=== PATIENT | male | born 1935 | race Two or more races ===

== ENCOUNTER → 2016-08-23 | Outpatient (CLI) | payer MEDICARE ==
[2016-08-21 15:02] VITALS: BP 90/59
[~2016-08-23] MED LIST: ASPI-482 PO; BARIUM SULFATE 340 GM SUSPENSION. PO ONE; BARIUM SULFATE 96% 397 GM ENEMA. PR ONE; CHOL2000 PO; CYAN10005 PO; LEVO100T5 PO; PANT40TA3 PO; SIMETHICONE/SOD BICARB/CITRIC ACID PACKET. PO ONE; SIMV80TA3 PO
--- NOTE | 2016-08-23 10:31 | RAD ---
EXAM: Double contrast barium esophagram. HISTORY: Gastrointestinal hemorrhage. COMPARISON: None. FINDINGS: Barium contrast material was administered orally and followed in its course through the pharynx, esophagus and gastroesophageal junction with fluoroscopy. Images of the stomach were also obtained. 22 fluoroscopic images were obtained. Fluoroscopy time 4.0 minutes. The swallowing apparatus appeared to function normally. There are surgical clips bilaterally in the neck. The esophageal also reported on recent endoscopy is not clearly demonstrated on this study. Esophageal morphology appears normal. There is moderate dysmotility within the mid and distal thirds of the esophagus on some swallows. The gastroesophageal junction is in expected position. Gastroesophageal reflux was spontaneous while supine. Images of the stomach revealed no clear mucosal lesions. The proximal duodenum appears normal. There is a duodenal diverticulum along the 4th portion. IMPRESSION: 1. Gastroesophageal reflux while supine. 2. The mucosal lesions reported on prior endoscopy are not appreciated by this technique. Refer to prior endoscopy for additional detail. 3. Moderate mid and distal esophageal dysmotility. 4. 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
== END | disposition home or self-care (01) ==
LOC: RAD 08:06
PROVIDERS: ATTEND Internal Medicine Gastroenterology
DX: K92.2 Gastrointestinal hemorrhage, unspecified (principal); K21.9 Gastro-esophageal reflux disease without esophagitis
CPT/HCPCS: 74220

== ENCOUNTER 2016-08-24 19:20 | Emergency (ER) | payer MEDICARE ==
[~2016-08-24] VITALS: Ht 180.3 cm; Wt 71.2 kg
[~2016-08-24 19:20] MED LIST changes: -BARIUM SULFATE 340 GM SUSPENSION. PO ONE; -BARIUM SULFATE 96% 397 GM ENEMA. PR ONE; -SIMETHICONE/SOD BICARB/CITRIC ACID PACKET. PO ONE
--- NOTE | 2016-08-24 19:59 | PHYS DOC ---
Past Medical History Past Medical History: Anemia, CVA, GERD, P.U.D. Past Surgical History: Other Additional Past Surgical Histo: carotid endar. cataracts Alcohol Use: None Drug Use: None Adult General Chief Complaint Chief Complaint: LOWER EXTREMITY SWELLING HPI HPI Patient is a 81 year old male presenting to the emergency department for evaluation of left lower extremity swelling that started several days ago. Leg is diffusely swollen but he denies any pain is entire leg and he is able to emulate with no difficulty. Patient was discharged 3 days ago after being admitted for a GI bleed and received an upper scope and a colonoscopy. Patient denies any other complaints including chest pain or SOA. Review of Systems Review of Systems Constitutional: Denies fever or chills [] Respiratory: Denies cough or shortness of breath [] Cardiovascular: No additional information not addressed in HPI [] GI: Denies abdominal pain, nausea, vomiting, bloody stools or diarrhea [] : Denies dysuria or hematuria [] Musculoskeletal: Denies back pain or joint pain [] Integument: Denies rash or skin lesions [] Neurologic: Denies headache, focal weakness or sensory changes [] Allergies Allergies Allergies Coded Allergies Type Severity Reaction Last Updated Verified No Known Drug Allergies 08/19/16 No Physical Exam Physical Exam Constitutional: Well developed, well nourished, no acute distress, non-toxic appearance. [] Cardiovascular:Heart rate regular rhythm, no murmur [] Lungs & Thorax: Bilateral breath sounds clear to auscultation [] Abdomen: Bowel sounds normal, soft, no tenderness, no masses, no pulsatile masses. [] Skin: Warm, dry, no erythema, no rash. [] Back: No tenderness, no CVA tenderness. [] Extremities: No tenderness, no cyanosis, no clubbing, ROM intact,+ LLE 1-2 + edema. [] Neurologic: Alert and oriented X 3, normal motor function, normal sensory function, no focal deficits noted. [] Current Patient Data Vital Signs Vital Signs Date Time Temp Pulse Resp B/P (MAP) Pulse Ox O2 Delivery O2 Flow Rate FiO2 08/24/16 20:28 67 18 130/70 (90) 97 Room Air 08/24/16 19:42 97.9 97.9 Lab Values Laboratory Tests Test 08/24/16 20:15 White Blood Count 6.0 x10^3/uL (4.0-11.0) Red Blood Count 3.00 x10^6/uL (4.30-5.70) L Hemoglobin 9.6 g/dL (13.0-17.5) L Hematocrit 27.4 % (39.0-53.0) L Mean Corpuscular Volume 91 fL (79-100) Mean Corpuscular Hemoglobin 32 pg (25-35) Mean Corpuscular Hemoglobin Concent 35 g/dL (31-37) Red Cell Distribution Width 15.9 % (11.5-14.5) H Platelet Count 239 x10^3/uL (140-400) Neutrophils (%) (Auto) 66 % (31-73) Lymphocytes (%) (Auto) 21 % (24-48) L Monocytes (%) (Auto) 9 % (0-9) Eosinophils (%) (Auto) 3 % (0-3) Basophils (%) (Auto) 1 % (0-3) Neutrophils # (Auto) 4.0 x10^3uL (1.8-7.7) Lymphocytes # (Auto) 1.3 x10^3/uL (1.0-4.8) Monocytes # (Auto) 0.5 x10^3/uL (0.0-1.1) Eosinophils # (Auto) 0.2 x10^3/uL (0.0-0.7) Basophils # (Auto) 0.1 x10^3/uL (0.0-0.2) Prothrombin Time 12.4 SEC (11.7-14.0) Prothrombin Time INR 1.0 (0.8-1.1) PTT 29 SEC (24-38) Sodium Level 143 mmol/L (136-145) Potassium Level 3.6 mmol/L (3.5-5.1) Chloride Level 109 mmol/L (98-107) H Carbon Dioxide Level 28 mmol/L (21-32) Anion Gap 6 (6-14) Blood Urea Nitrogen 15 mg/dL (8-26) Creatinine 0.9 mg/dL (0.7-1.3) Estimated GFR (Cockcroft-Gault) 81.4 BUN/Creatinine Ratio 17 (6-20) Glucose Level 127 mg/dL (70-99) H Calcium Level 7.9 mg/dL (8.5-10.1) L Magnesium Level 2.0 mg/dL (1.8-2.4) Total Bilirubin 0.3 mg/dL (0.2-1.0) Aspartate Amino Transferase (AST) 16 U/L (15-37) Alanine Aminotransferase (ALT) 22 U/L (16-63) Alkaline Phosphatase 74 U/L (46-116) [id number]-Type Natriuretic Peptide 144 pg/mL (0-449) Total Protein 5.6 g/dL (6.4-8.2) L Albumin 2.8 g/dL (3.4-5.0) L Albumin/Globulin Ratio 1.0 (1.0-1.7) Laboratory Tests 08/24/16 20:15 Laboratory Tests 08/24/16 20:15 EKG EKG [] Radiology/Procedures Radiology/Procedures Left Lower Extremity Venous Doppler Ultrasound Indication: Left lower extremity swelling for 2 days. Comparison: None. Procedure: Color Doppler, spectral Doppler, and grayscale images with and without compression are obtained in the area of the common femoral vein, superficial femoral vein - femoral vein junction, main femoral vein (superficial femoral vein) and popliteal vein. Veins of the proximal calf are also imaged. Findings: There is normal duplex flow, color flow and compressibility of all visualized vein segments. There is no evidence of deep venous thrombosis. 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 Impression: No evidence of left lower extremity deep venous thrombosis. Electronically signed by: Edvin Valdivia MD (08/24/2016 9:05 PM) DICTATED and SIGNED BY: EDVIN VALDIVIA MD DATE: 08/24/162103 Course & Med Decision Making Course & Med Decision Making Will get screening labs ultrasound and reassess. Ultrasound negative and he has repeat benign exam so he'll be discharged with instructions to keep his left leg elevated follow with his primary care provider later this week and come back to the ER sooner with any worsening pain weakness swelling or other general concerns. Dragon Disclaimer Dragon Disclaimer This electronic medical record was generated, in whole or in part, using a voice recognition dictation system. Departure Departure Impression: Primary Impression: Leg edema, left Disposition: 01 HOME, SELF-CARE Condition: GOOD Referrals: UNKNOWN PCP NAME (PCP) Patient Instructions: Peripheral Edema MC RUBI DO Aug 24, 2016 19:59
[2016-08-24 20:24] LABS: BASO # 0.1 x10^3/uL (0.0-0.2); BASO % 1 % (0-3); EOS % 3 % (0-3); HEMATOCRIT 27.4 % (39.0-53.0); HEMOGLOBIN 9.6 g/dL (13.0-17.5); LYMPH # 1.3 x10^3/uL (1.0-4.8); LYMPH % 21 % (24-48); MEAN CORPUSCULAR HEMOGLOBIN 32 pg (25-35); MEAN CORPUSCULAR HGB CONC 35 g/dL (31-37); MEAN CORPUSCULAR VOLUME 91 fL (79-100); MONO % 9 % (0-9); NEUT % 66 % (31-73); PLATELET COUNT 239 x10^3/uL (140-400); RED CELL DISTRIBUTION WIDTH 15.9 % (11.5-14.5)
[2016-08-24 20:28] VITALS: BP 130/70
[2016-08-24 20:33] LABS: PROTHROMBIN TIME PATIENT 12.4 SEC (11.7-14.0)
[2016-08-24 20:42] LABS: CALCIUM 7.9 mg/dL (8.5-10.1); CREATININE 0.9 mg/dL (0.7-1.3); GFR 81.4; POTASSIUM 3.6 mmol/L (3.5-5.1)
[2016-08-24 20:45] LABS: ALBUMIN 2.8 g/dL (3.4-5.0); TOTAL BILIRUBIN 0.3 mg/dL (0.2-1.0); TOTAL PROTEIN 5.6 g/dL (6.4-8.2)
--- NOTE | 2016-08-24 21:09 | RAD ---
Left Lower Extremity Venous Doppler Ultrasound Indication: Left lower extremity swelling for 2 days. Comparison: None. Procedure: Color Doppler, spectral Doppler, and grayscale images with and without compression are obtained in the area of the common femoral vein, superficial femoral vein - femoral vein junction, main femoral vein (superficial femoral vein) and popliteal vein. Veins of the proximal calf are also imaged. Findings: There is normal duplex flow, color flow and compressibility of all visualized vein segments. There is no evidence of deep venous thrombosis. 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 Impression: No evidence of left lower extremity deep venous thrombosis. Electronically signed by: Hubert Valdivia MD (08/24/2016 9:05 PM)
== END 2016-08-24 22:10 | disposition home or self-care (01) ==
LOC: ER 19:20
DX: R60.0 Localized edema (principal); Z86.73 Personal history of transient ischemic attack (TIA), and cerebral infarction without residual deficits; K21.9 Gastro-esophageal reflux disease without esophagitis
CPT/HCPCS: 36415; 80053; 83735; 83880; 85027; 85610; 85730; 93971; 99285-25